=== PATIENT | female | born 2000 | race American Indian/Alaskan Native ===

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

== ENCOUNTER 2023-10-15 03:37 | Emergency (ER) | payer BC, OTHER ==
[2023-10-15] MEDS ORDERED: Ibuprofen 800 MG Tab PO ONE (03:45)
[2023-10-15] MEDS ORDERED: Sodium Chloride 0.9% 10 ML Syringe FLUSH PRN (03:57)
[2023-10-15] MEDS ORDERED: Sodium Chloride 0.9% 1,000 ML IV ONE (03:57)
[2023-10-15 04:32] LABS: INFLUENZA A NAA NEGATIVE (NEGATIVE); INFLUENZA B NAA NEGATIVE (NEGATIVE); RESPIRATORY SYNCYTIAL VIR NAA NEGATIVE (NEGATIVE)
[2023-10-15 04:34] LABS: CORONAVIRUS COVID-19 NAA POSITIVE (NEGATIVE)
== END 2023-10-15 04:46 | disposition home or self-care (01) ==
LOC: DL.ED 03:37
DX: U07.1 COVID-19 (principal)
CPT/HCPCS: 0241U; 96360; 99283; 99283-25; A9270-GY; J7030